=== PATIENT | male | born 1995 | race Caucasian/White ===

== ENCOUNTER 2016-11-06 11:01 | Emergency (ER) | payer MEDICAID ==
[~2016-11-06] VITALS: Ht 165.1 cm; Wt 93.0 kg
[2016-11-06] MEDS ORDERED: KETOROLAC 60MG/2ML VIAL IM ONE (12:30)
[2016-11-06 12:53] VITALS: BP 118/76
== END 2016-11-06 15:53 | disposition home or self-care (01) ==
LOC: ER 12:44
DX: M25.511 Pain in right shoulder (principal); F17.200 Nicotine dependence, unspecified, uncomplicated; F12.10 Cannabis abuse, uncomplicated
CPT/HCPCS: 73030; 96372; 99284; J1885; A4565

== ENCOUNTER 2017-04-12 03:04 | Emergency (ER) | payer MEDICAID ==
[~2017-04-12] VITALS: Ht 175.3 cm; Wt 91.0 kg
[2017-04-12 03:28] VITALS: BP 138/85
== END 2017-04-12 07:41 | disposition left against medical advice (07) ==
LOC: ER 03:04
DX: Z53.21 Procedure and treatment not carried out due to patient leaving prior to being seen by health care provider (principal)